=== PATIENT | male | born 1985 | race African-American/Black ===

== ENCOUNTER 2017-02-22 22:17 | Emergency (ER) | payer OTHER ==
[2017-02-22] MEDS ORDERED: SODIUM CHLORIDE 0.9% 1,000 ML IV ONE (23:11)
[2017-02-22] MEDS ORDERED: DICYCLOMINE 20 MG TAB PO STA (23:12)
--- NOTE | 2017-02-22 23:16 | ED ---
Abdominal Pain HPI - General Chief Complaint: Abdominal Pain Stated Complaint: abdominal pain Time Seen by Provider: 02/22/17 22:36 Source: patient, family, RN notes reviewed Mode of arrival: ambulatory Limitations: no limitations - History of Present Illness Initial Comments: Patient is a 31-year-old male presents emergency room for evaluation of abdominal pain. Patient states began having abdominal pain yesterday. Patient states just returned from [place] for weeklong trip for his honeymoon. Patient states he had 2 episodes of loose stools today. Patient states she's having left lower quadrant and right lower quadrant pain. Patient states he did not drink the water while in [place]. Patient states he's having intermittent cramping/stabbing abdominal pain. Patient denies nausea or vomiting. Patient denies fevers or chills. Patient denies chest pain or shortness of breath. Patient denies any blood in the stools. Patient denies history of abdominal surgeries. Patient did state he passed gas earlier today with slight relief of symptoms. - Related Data Home Medications Medication Instructions Recorded Confirmed Cetirizine HCl [Zyrtec] 10 mg PO DAILY 02/22/17 02/22/17 predniSONE 15 - 25 mg PO DAILY PRN 02/22/17 02/22/17 Previous Rx's Medication Instructions Recorded Acetaminophen with Codeine 1 tab PO Q4H PRN #12 tab 02/23/17 [Tylenol w/codeine #3] Ciprofloxacin HCl [Cipro] 500 mg PO Q12HR 5 Days 02/23/17 metroNIDAZOLE [Flagyl] 500 mg PO Q8HR 5 Days 02/23/17 Allergies Allergy/AdvReac Type Severity Reaction Status Date / Time No Known Allergies Allergy Verified 02/22/17 22:42 Review of Systems ROS Statement: Those systems with pertinent positive or pertinent negative responses have been documented in the HPI. ROS Other: All systems not noted in ROS Statement are negative. Past Medical History Additional Past Medical History / Comment(s): dermatitis History of Any Multi-Drug Resistant Organisms: None Reported Past Surgical History: No Surgical Hx Reported Past Psychological History: No Psychological Hx Reported Smoking Status: Never smoker Past Alcohol Use History: None Reported Past Drug Use History: None Reported General Exam - General Exam Comments Initial Comments: laying in exam room, no acute distress. Limitations: no limitations General appearance: alert Head exam: Present: atraumatic, normocephalic, normal inspection Eye exam: Present: normal appearance ENT exam: Present: normal exam Neck exam: Present: normal inspection Respiratory exam: Present: normal lung sounds bilaterally. Absent: respiratory distress Cardiovascular Exam: Present: regular rate, normal rhythm, normal heart sounds GI/Abdominal exam: Present: soft, tenderness (RLQ, LLQ), normal bowel sounds. Absent: distended, guarding, rebound, rigid Extremities exam: Present: normal inspection Back exam: Present: normal inspection Neurological exam: Present: alert, oriented X3, CN II-XII intact, normal gait Psychiatric exam: Present: normal affect, normal mood Skin exam: Present: warm, dry, intact, normal color. Absent: rash Course Vital Signs 02/22/17 02/23/17 02/23/17 22:20 01:00 02:54 Temperature 99.3 F Pulse Rate 70 77 86 Respiratory 18 16 16 Rate Blood Pressure 155/86 138/62 113/62 O2 Sat by Pulse 100 100 Oximetry 02/23/17 04:27 Temperature 99.0 F Pulse Rate 60 Respiratory 18 Rate Blood Pressure 138/70 O2 Sat by Pulse 97 Oximetry Medical Decision Making - Medical Decision Making Patient is a 31-year-old male presents emergency room for a lower abdominal pain after returning from [facility] yesterday. Fecal occult was positive. Labs show no concerning findings. Patient tender in right lower quadrant, CT ordered to rule out appendicitis. Colitis noted in the right side of the colon. Patient was started on antibiotics and advised follow-up with primary care provider. Patient states he understands everything that was discussed with him. Return parameters discussed. Case discussed Dr. Watson. - Lab Data Result diagrams: 02/22/17 23:04 02/22/17 23:04 Lab Results 02/22/17 02/22/17 02/22/17 Range/Units 23:04 23:04 23:04 WBC 7.3 (3.8-10.6) k/uL RBC 5.44 (4.30-5.90) m/uL Hgb 16.6 (13.0-17.5) gm/dL Hct 48.1 (39.0-53.0) % MCV 88.4 (80.0-100.0) fL MCH 30.6 (25.0-35.0) pg MCHC 34.6 (31.0-37.0) g/dL RDW 12.7 (11.5-15.5) % Plt Count 156 (150-450) k/uL Neutrophils % 67 % Lymphocytes % 21 % Monocytes % 8 % Eosinophils % 1 % Basophils % 1 % Neutrophils # 4.9 (1.3-7.7) k/uL Lymphocytes # 1.5 (1.0-4.8) k/uL Monocytes # 0.6 (0-1.0) k/uL Eosinophils # 0.1 (0-0.7) k/uL Basophils # 0.1 (0-0.2) k/uL Sodium 140 (137-145) mmol/L Potassium 3.9 (3.5-5.1) mmol/L Chloride 101 (98-107) mmol/L Carbon Dioxide 29 (22-30) mmol/L Anion Gap 10 mmol/L BUN 14 (9-20) mg/dL Creatinine 1.10 (0.66-1.25) mg/dL Est GFR (MDRD) Af Amer >60 (>60 ml/min/1.73 sqM) Est GFR (MDRD) Non-Af >60 (>60 ml/min/1.73 sqM) Glucose 84 (74-99) mg/dL Calcium 9.4 (8.4-10.2) mg/dL Total Bilirubin 0.7 (0.2-1.3) mg/dL AST 35 (17-59) U/L ALT 63 (21-72) U/L Alkaline Phosphatase 86 (38-126) U/L Total Protein 7.2 (6.3-8.2) g/dL Albumin 4.3 (3.5-5.0) g/dL Amylase 121 H (30-110) U/L Lipase 324 H (23-300) U/L Urine Color Light Yellow Urine Appearance Clear (Clear) Urine pH 6.5 (5.0-8.0) Ur Specific [place] 1.008 (1.001-1.035) Urine Protein Negative (Negative) Urine Glucose (UA) Negative (Negative) Urine Ketones Negative (Negative) Urine Blood Negative (Negative) Urine Nitrite Negative (Negative) Urine Bilirubin Negative (Negative) Urine Urobilinogen <2.0 (<2.0) mg/dL Ur Leukocyte Esterase Negative (Negative) Stool Occult Blood (Negative) C. difficile (EIA) Intrp (Negative) 02/23/17 02/23/17 Range/Units 00:10 00:10 WBC (3.8-10.6) k/uL RBC (4.30-5.90) m/uL Hgb (13.0-17.5) gm/dL Hct (39.0-53.0) % MCV (80.0-100.0) fL MCH (25.0-35.0) pg MCHC (31.0-37.0) g/dL RDW (11.5-15.5) % Plt Count (150-450) k/uL Neutrophils % % Lymphocytes % % Monocytes % % Eosinophils % % Basophils % % Neutrophils # (1.3-7.7) k/uL Lymphocytes # (1.0-4.8) k/uL Monocytes # (0-1.0) k/uL Eosinophils # (0-0.7) k/uL Basophils # (0-0.2) k/uL Sodium (137-145) mmol/L Potassium (3.5-5.1) mmol/L Chloride (98-107) mmol/L Carbon Dioxide (22-30) mmol/L Anion Gap mmol/L BUN (9-20) mg/dL Creatinine (0.66-1.25) mg/dL Est GFR (MDRD) Af Amer (>60 ml/min/1.73 sqM) Est GFR (MDRD) Non-Af (>60 ml/min/1.73 sqM) Glucose (74-99) mg/dL Calcium (8.4-10.2) mg/dL Total Bilirubin (0.2-1.3) mg/dL AST (17-59) U/L ALT (21-72) U/L Alkaline Phosphatase (38-126) U/L Total Protein (6.3-8.2) g/dL Albumin (3.5-5.0) g/dL Amylase (30-110) U/L Lipase (23-300) U/L Urine Color Urine Appearance (Clear) Urine pH (5.0-8.0) Ur Specific [place] (1.001-1.035) Urine Protein (Negative) Urine Glucose (UA) (Negative) Urine Ketones (Negative) Urine Blood (Negative) Urine Nitrite (Negative) Urine Bilirubin (Negative) Urine Urobilinogen (<2.0) mg/dL Ur Leukocyte Esterase (Negative) Stool Occult Blood Positive (Negative) C. difficile (EIA) Intrp Negative (Negative) - Radiology Data Radiology results: report reviewed, image reviewed Disposition Clinical Impression: Colitis Disposition: HOME SELF-CARE Condition: Good Instructions: Colitis (ED) Additional Instructions: Take antibiotics as directed. Please follow up with primary care provider in 1- 2 days. If any new symptom arises or symptoms worsen, return to ER as soon as possible. Prescriptions: metroNIDAZOLE [Flagyl] 500 mg PO Q8HR 5 Days Ciprofloxacin HCl [Cipro] 500 mg PO Q12HR 5 Days Acetaminophen with Codeine [Tylenol w/codeine #3] 1 tab PO Q4H PRN #12 tab PRN Reason: Pain Referrals: None,Stated [Primary Care Provider] - 1-2 days Time of Disposition: 04:03
[2017-02-22 23:35] LABS: Appearance,Urine Clear (Clear); Bilirubin,Urine Negative (Negative); Glucose,Urine (UA) Negative (Negative); Ketones,Urine Negative (Negative); Leukocyte Esterase,Urine Negative (Negative); Nitrite,Urine Negative (Negative); PH, Urine 6.5 (5.0-8.0); Protein,Urine Negative (Negative); Specific Gravity,Urine 1.008 (1.001-1.035); UA Billing (MACRO vs. MICRO) CHEM; Urobilinogen,Urine <2.0 mg/dL (<2.0)
[2017-02-22 23:36] LABS: Basophils # (A) 0.1 k/uL (0-0.2); Basophils % (A) 1 %; CH 30.4; CHCM 34.6; Eosinophils # (A) 0.1 k/uL (0-0.7); Eosinophils % (A) 1 %; HCT 48.1 % (39.0-53.0); HGB 16.6 gm/dL (13.0-17.5); Luc # (Auto) 0.14; Luc % (Auto) 2; Lymphocytes # (A) 1.5 k/uL (1.0-4.8); Lymphocytes % (A) 21 %; MCH 30.6 pg (25.0-35.0); MCHC 34.6 g/dL (31.0-37.0); MCV 88.4 fL (80.0-100.0); Mean Platelet Volume 7.3; Monocytes # (A) 0.6 k/uL (0-1.0); Monocytes % (A) 8 %; Neutrophils # (A) 4.9 k/uL (1.3-7.7); Neutrophils % (A) 67 %; RBC 5.44 m/uL (4.30-5.90); RDW 12.7 % (11.5-15.5); WBC 7.3 k/uL (3.8-10.6); WBC (Perox) 6.99
[2017-02-22 23:50] LABS: ALT 63 U/L (21-72); AST 35 U/L (17-59); Alkaline Phosphatase 86 U/L (38-126); Amylase 121 U/L (30-110); Anion Gap 10 mmol/L; Blood Urea Nitrogen 14 mg/dL (9-20); Calcium 9.4 mg/dL (8.4-10.2); Carbon Dioxide 29 mmol/L (22-30); Chloride 101 mmol/L (98-107); Glucose 84 mg/dL (74-99); Non-African American GFR(MDRD) >60 (>60 ml/min/1.73 sqM); Potassium 3.9 mmol/L (3.5-5.1); Sodium 140 mmol/L (137-145); Total Bilirubin 0.7 mg/dL (0.2-1.3); Total Protein 7.2 g/dL (6.3-8.2)
--- NOTE | 2017-02-23 00:45 | XR ---
EXAM: XR Abdomen, 1 View CLINICAL HISTORY: Reason: pain TECHNIQUE: Frontal upright views of the abdomen/pelvis. COMPARISON: No relevant prior studies available. FINDINGS: Lower thorax: Small round radiodense nodule overlying the right lung base suggesting either a vessel seen end on or small calcified granuloma. Intraperitoneal space: No free air. Gastrointestinal tract: There appear to be a few scattered air-fluid levels within nondilated large and perhaps also small bowel loops on these upright images. Bones/joints: Unremarkable. IMPRESSION: Nonspecific bowel gas pattern with scattered air-fluid levels within nondilated bowel loops, perhaps on the basis of a mild ileus. The findings could be correlated and followed clinically to guide further imaging follow-up if clinically indicated.
[2017-02-23] MEDS ORDERED: RX INFO: IV CONTRAST WAS GIVEN 1 EACH MISC MISCELLANE PRN (01:33)
[2017-02-23] MEDS ORDERED: MORPHINE SULFATE 4 MG/ML SYRINGE IVP STA (01:34)
--- NOTE | 2017-02-23 03:51 | CT ---
EXAM: CT Abdomen and Pelvis With Intravenous Contrast CLINICAL HISTORY: Reason: Pain TECHNIQUE: Axial computed tomography images of the abdomen and pelvis with intravenous contrast. CTDI is 24.91 mGy and DLP is 1039 mGy-cm. This CT exam was performed using one or more of the following dose reduction techniques: automated exposure control, adjustment of the mA and/or kV according to patient size, and/or use of iterative reconstruction technique. COMPARISON: No relevant prior studies available. FINDINGS: Lower thorax: No acute findings. ABDOMEN: Liver: Tiny hypodense focus within the anterior segment right hepatic lobe is too small to accurately characterize although remains visible on delayed views, perhaps a tiny cyst. Gallbladder and bile ducts: Unremarkable. No calcified stones. No ductal dilation. Pancreas: Unremarkable. No mass. No ductal dilation. Spleen: Unremarkable. No splenomegaly. Adrenals: Unremarkable. No mass. Kidneys and ureters: No solid mass. No hydronephrosis. Small region of probable scarring in the medial left upper pole kidney. Of incidental note is an accessory right lower pole renal artery. Stomach and bowel: Circumferential colonic wall thickening most notably involves the cecum where there is pericecal inflammatory change and trace free fluid, and may also involve the remainder the colon to a lesser degree with note made of increased pericolonic vascular markings about the sigmoid and rectum. There is no evidence of small bowel obstruction. No pneumatosis. Appendix: No findings to suggest acute appendicitis. PELVIS: Bladder: Unremarkable. No mass. Reproductive: Small calcifications are noted centrally within normal size prostate gland. ABDOMEN and PELVIS: Intraperitoneal space: No free air or abscess. Bones/joints: No acute fracture. Soft tissues: Unremarkable. Vasculature: No abdominal aortic aneurysm. Lymph nodes: Multiple scattered small nodes within the mesentery. IMPRESSION: 1. Colonic wall thickening most notably involving the right colon, may also involve the remainder of the colon to the lesser degree, suggesting the presence of a nonspecific colitis, most commonly on an infectious or inflammatory basis. 2. No associated obstruction, free air or abscess. 3. Additional findings, including small nodes throughout the mesentery which are presumably reactive/related, as above.
[2017-02-23 04:28] VITALS: BP 138/70; PULSE 60; RESP 18; TEMP 99
== END 2017-02-23 04:27 | disposition home or self-care (01) ==
LOC: EC 22:17
DX: K52.9 Noninfective gastroenteritis and colitis, unspecified (principal); Z79.899 Other long term (current) drug therapy
CPT/HCPCS: 99284; 96374; 96361; 36415; 80053; 82150; 83690; 85025; 82272; 81003; 87324; 89055; 74000; 74177; J2270; Q9967